=== PATIENT | male | born 1950 | race Caucasian/White ===

== ENCOUNTER 2017-07-27 07:19 | Day surgery (SDC) | payer OTHER ==
[~2017-07-27 07:19] MED LIST: NS 500 ML IV 500 ML IV ONE; TETRACAINE 0.5% OPHTH 1 DOSE AFFEYE ONE
[2017-07-27] MEDS ORDERED: VIGAMOX 0.5% OPHTH 1 DOSE AFFEYE ONE ×4 (07:20→09:42)
[2017-07-27] MEDS ORDERED: PROLENSA OPHTH 1 DOSE AFFEYE ONE (07:31)
[2017-07-27] MEDS ORDERED: ALPHAGAN-P OPHTH 1 DOSE AFFEYE ONE (07:32)
[2017-07-27] MEDS ORDERED: CYCLOGYL 1% OPHTH 1 DOSE OP ONE ×3 (07:33→07:35)
[2017-07-27] MEDS ORDERED: AK-DILATE 2.5% OPHTH 1 DOSE OP ONE ×3 (07:33→07:35)
[2017-07-27] MEDS ORDERED: MYDRIACIL OPHTH 1 DOSE AFFEYE ONE ×3 (07:33→07:35)
[2017-07-27] MEDS ORDERED: FENTANYL INJ 100 mcg ONE (08:58)
[2017-07-27] MEDS ORDERED: TETRACAINE 0.5% OPHTH 1 DOSE AFFEYE ONE ×5 (09:00→09:31)
[2017-07-27] MEDS: VERSED ONE ×2 (09:14→09:17)
[2017-07-27] MEDS ORDERED: AK-DILATE 10% OPHTH 1 DOSE AFFEYE ONE (09:21)
[2017-07-27] MEDS ORDERED: BETADINE OPHTH SOLN 5% EACHEYE ONE (09:30)
[2017-07-27] MEDS ORDERED: BSS OPHTH (PLAIN) 500 ML with VANCOMYCIN HCL 500 MG VIAL 25 MG, ADRENALINE CHL INJ 1 MG IR ONE ×3 (09:30)
[2017-07-27] MEDS ORDERED: XYLOCAINE-MPF 1% IJ ONE (09:35)
[2017-07-27] MEDS ORDERED: DUOVISC IO ONE (09:35)
[2017-07-27] MEDS ORDERED: ADRENALINE CHL INJ IJ ONE (09:35)
[2017-07-27 10:06] VITALS: BP 150/85
== END 2017-07-27 10:10 | disposition home or self-care (01) ==
LOC: SURG1 07:19
PROVIDERS: ATTEND Ophthalmology
PROC: 08RJ3JZ Replacement of Right Lens with Synthetic Substitute, Percutaneous Approach (ICD-10-PCS; principal; 2017-07-27 06:00)
PROC: 08DJ3ZZ Extraction of Right Lens, Percutaneous Approach (ICD-10-PCS; principal; 2017-07-27 06:00)
DX: H25.11 Age-related nuclear cataract, right eye (principal); H25.011 Cortical age-related cataract, right eye; H52.221 Regular astigmatism, right eye
CPT/HCPCS: A4217; J0170; J2250; J3010; J3370